=== PATIENT | male | born 1945 | race Caucasian/White ===

== ENCOUNTER 2021-01-17 17:48 | Emergency (ER) | payer OTHER ==
[2021-01-17] MEDS ORDERED: Adacel Vial IM ONE ×2 (19:39→19:44)
--- NOTE | 2021-01-17 19:44 | ERPHSYRPT ---
- History of Present Illness Time Seen by Provider: 01/17/21 17:53 Source: patient, family, EMS, police Exam Limitations: intoxication Patient Subjective Stated Complaint: Laceration Triage Nursing Assessment: Patient brought into ED via EMS and transferred to bed with assist of 3. Patient Alert. Patient appears to be intoxicated. Patient was at local bar when he stumbled and fell back hitting his head on the corner of a table. Patient has laceration noted to back of head 2.5cm. Physician History: 75 years old presented in the ER via EMS and police after he stumbled at a local bar leading to fall backward and hit the edge of a table on the back of his head prior to arrival. No loss of consciousness. There was bleeding initially but stopped with applying pressure. Patient is intoxicated and no apparent injury otherwise. Not in any distress. History is limited. Occurred: just prior to arrival Severity: moderate Head Injury Location: occipital, parietal Method of Injury: fell Loss of Consciousness: no loss of consciousness Associated Symptoms: denies symptoms Allergies/Adverse Reactions: No Known Drug Allergies Allergy (Unverified 01/17/21 17:52) Hx Influenza Vaccination/Date Given: Yes Hx Pneumococcal Vaccination/Date Given: No Immunizations Up to Date: Yes Travel Risk - International Travel Have you traveled outside of the country in past 3 weeks: No - Coronavirus Screening Are you exhibiting any of the following symptoms?: No Close contact with a COVID-19 positive Pt in past 14-21 Days: No - Vaccine Status Have you recieved a Covid-19 vaccination: Yes Tar Heater: Moderna - Vaccination Dates Date of 2cond Vaccination (if applicable): 12/19/2020 - Review of Systems Constitutional: No Symptoms Eyes: No Symptoms Ears, Nose, & Throat: No Symptoms Respiratory: No Symptoms Cardiac: No Symptoms Abdominal/Gastrointestinal: No Symptoms Genitourinary Symptoms: No Symptoms Skin: Skin Lesions Neurological: No Symptoms - Past Medical History Other Medical History: Patient intoxicated poor historian - Past Surgical History Other Surgical History: Patient intoxicated poor historian - Social History Smoking Status: Never smoker Exposure to second hand smoke: No Drug Use: none Patient Lives Alone: No - Nursing Vital Signs Nursing Vital Signs: Initial Vital Signs Temperature 97.9 F 01/17/21 17:53 Pulse Rate 68 01/17/21 17:53 Respiratory Rate 18 04/10/21 17:53 Blood Pressure 101/54 04/10/21 17:53 O2 Sat by Pulse Oximetry 97 01/17/21 17:53 Pain Scale Pain Intensity 0 - Whitley Coma Score Best Eye Response ([place]): (4) open spontaneously Best Verbal Response ([place]): (5) oriented Best Motor Response ([place]): (6) obeys commands Whitley Total: 15 - Physical Exam General Appearance: no apparent distress, alert Head Injury: lacerations (2.5 cm laceration left occipital parietal area with no active bleeding or spurting. 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 Exam: normal hearing, normal speech, PERRL Motor/Sensory Exam: no motor deficit, no sensory deficit, negative Babinski's sign Skin Exam: normal color SpO2 Interpretation: normal SpO2: 97 O2 Delivery: Room Air Procedures - Laceration/Wound Repair Left Head Time of Procedure: 17:25 Wound Location: Left, head Wound Length (cm): 2.5 Wound's Depth, Shape: superficial Wound Explored: clean Irrigated: Yes Hibiclens Prep: Yes Wound Repaired With: Dumont Number of Sutures: 3 Ordered Tests: Active Orders 24 hr Category Date Time Status CERVICAL SPINE WO CONTRAST [CT] Stat Exams 01/17/21 18:08 Taken HEAD WITHOUT CONTRAST [CT] Stat Exams 01/17/21 18:07 Taken - Progress Progress: improved, re-examined Progress Note: 01/17/21 19:43 Tetanus status is updated. Wound is cleaned and kirill applied. CT head and neck are negative for any acute findings. Patient's mental status is much improved while in the ER. He is not belligerent and is going home. Recommended outpatient follow-up. Discussed signs symptoms are worsening. Return to ER which he seems understanding. Counseled pt/family regarding: diagnosis, need for follow-up, rad results - Departure Departure Disposition: Home Clinical Impression: Scalp laceration Qualifiers: Encounter type: initial encounter Qualified Code(s): S01.01XA - Laceration without foreign body of scalp, initial encounter Condition: Stable Critical Care Time: No Referrals: DOCTOR,NO FAMILY [Primary Care Provider] - BA UNGER MD [ACTIVE STAFF] - (In 2 to 3 days for reevaluation.) Instructions: Laceration Repair With Kirill (DC), Closed Head Injury (DC) Additional Instructions: Follow head injury instructions. Do not drink alcohol. Take Tylenol as needed for pain. Keep it clean. Apply bacitracin/triple antibiotics twice a day. Staple removal in 10 days. Return to ER for worsening headache, bleeding, swelling, discharge, altered level of sensorium/intractable vomiting etc. Prescriptions: Bacitracin 14 gm TP BID 5 Days #14 oint...g.
[2021-01-17 20:11] VITALS: BP 113/90; PULSE 72; O2SAT 98
--- NOTE | 2021-01-18 08:02 | XRAY ---
Indication: Head injury following fall. Multiple contiguous axial images obtained through the head without contrast. Comparison: None A few images slightly degraded by motion artifact. Age-appropriate global atrophy. No acute intracranial hemorrhage, abnormal extra-axial fluid collection, or mass effect. Fourth ventricle is midline without hydrocephalus. Bony calvarium intact with incidental left supraorbital fixation plate/screw. Visualized paranasal sinuses and mastoid air cells are clear. Impression: Minimal motion artifact. Grossly nonacute CT head without contrast exam. Comment: Preliminary interpretation was made by [facility]. No critical discrepancy.
--- NOTE | 2021-01-18 08:04 | XRAY ---
Indication: Head injury following fall. Multiple contiguous axial images obtained through the cervical spine. Sagittal and coronal reformatted images obtained. Comparison: None Axial images negative for acute fracture, suspicious bony lesions, or spinal canal stenosis. Mild/moderate C3-T1 degenerative endplate spurring. Sagittal and coronal reformatted images demonstrates lordotic reversal, positional versus paraspinal spasm. There is C3-T1 disc space loss. No acute compression fracture, subluxation, or jumped facet. Normal-appearing craniocervical junction. Visualized noncontrasted soft tissues demonstrate moderate scattered vascular calcifications bilaterally. Lung apices are clear. Impression: 1. Cervical lordotic reversal, positional versus paraspinal spasm. 2. Negative for acute fracture/subluxation. 3. Incidental multilevel degenerative changes. Comment: Preliminary interpretation was made by [facility]. No critical discrepancy.
== END 2021-01-17 20:09 | disposition home or self-care (01) ==
LOC: ED 17:48
DX: S01.01XA Laceration without foreign body of scalp, initial encounter (principal); W18.30XA Fall on same level, unspecified, initial encounter; Y93.9 Activity, unspecified; Y92.89 Other specified places as the place of occurrence of the external cause
CPT/HCPCS: 12001; 70450; 72125; 90471; 90715; 99284

== ENCOUNTER 2021-01-27 12:52 | Emergency (ER) | payer OTHER ==
[2021-01-27 13:11] VITALS: BP 152/70; PULSE 70; O2SAT 98
--- NOTE | 2021-01-27 13:11 | ERPHSYRPT ---
- History of Present Illness Source: patient Patient Subjective Stated Complaint: Pt here to get kirill removed Triage Nursing Assessment: Pt states he is here to get kirill removed. States he has no other complaints at this time. 3 Kirill located on back of head. Physician History: Scalp kirill x3. 10days/No comps/Tetanus given at last visit. Timing/Duration: other (10 days) Location: scalp Possible Causes: other (Drunken fall) Modifying Factors: Worsens With: antihistamine, calamine lotion, prednisone, scratching, topical steriods Associated Symptoms: denies symptoms Allergies/Adverse Reactions: No Known Drug Allergies Allergy (Unverified 01/17/21 17:52) Hx Influenza Vaccination/Date Given: Yes Hx Pneumococcal Vaccination/Date Given: No Travel Risk - International Travel Have you traveled outside of the country in past 3 weeks: No - Coronavirus Screening Are you exhibiting any of the following symptoms?: No - Vaccine Status Have you recieved a Covid-19 vaccination: Yes 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: [employer] - Vaccination Dates Date of 2cond Vaccination (if applicable): 12/19/2020 - Review of Systems Constitutional: No Symptoms Eyes: No Symptoms Ears, Nose, & Throat: No Symptoms Respiratory: No Symptoms Cardiac: No Symptoms Abdominal/Gastrointestinal: No Symptoms Genitourinary Symptoms: No Symptoms Musculoskeletal: No Symptoms Skin: No Symptoms Neurological: No Symptoms Psychological: No Symptoms Endocrine: No Symptoms Hematologic/Lymphatic: No Symptoms - Past Medical History ENT History: Other Cardiac History: Myocardial Infarction ([place]) Other Medical History: Eye surgery to remove mass, gall bladder removal, hernia operation during childhood - Past Surgical History Past Surgical History: Yes Gastrointestinal: Hernia Repair Other Surgical History: Patient intoxicated poor historian - Social History Smoking Status: Never smoker Exposure to second hand smoke: No Drug Use: none Patient Lives Alone: No Significant Family History: no pertinent family hx - Nursing Vital Signs Nursing Vital Signs: Initial Vital Signs Temperature 98 F 01/27/21 13:09 Pulse Rate 70 01/27/21 13:09 Blood Pressure 152/70 01/27/21 13:09 O2 Sat by Pulse Oximetry 98 01/27/21 13:09 Pain Scale Pain Intensity 0 - Physical Exam General Appearance: no apparent distress Eye Exam: PERRL/EOMI Ears, Nose, Throat Exam: normal ENT inspection Neck Exam: normal inspection Respiratory Exam: normal breath sounds Cardiovascular Exam: regular rate/rhythm Gastrointestinal/Abdomen Exam: soft, normal bowel sounds Rectal Exam: deferred Back Exam: normal inspection, normal range of motion Extremity Exam: normal inspection, normal range of motion Neurologic Exam: alert, oriented x 3, cooperative, 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 II-XII nml as tested, normal mood/affect Skin Exam: other (Scalp kirill x3/occiput/Clean, dry, intact wo evidence of infection) Lymphatic Exam: No adenopathy SpO2 Interpretation: normal O2 Delivery: Room Air - Course Nursing assessment & vital signs reviewed: Yes - Progress Progress: improved Progress Note: 01/27/21 13:10 [place] removed per nursing/No comps Counseled pt/family regarding: need for follow-up - Departure Departure Disposition: Home Clinical Impression: Removal of kirill Condition: Stable Critical Care Time: No Referrals: DOCTOR,NO FAMILY [Primary Care Provider] - Instructions: Staple Removal
== END 2021-01-27 13:12 | disposition home or self-care (01) ==
LOC: ED 12:52
DX: Z48.02 Encounter for removal of sutures (principal)
CPT/HCPCS: 99283; G0463